=== PATIENT | female | born 1980 | race American Indian/Alaskan Native ===

== ENCOUNTER 2018-02-20 17:28 | Emergency (ER) | payer SELFPAY ==
[2018-02-20 20:15] VITALS: BP 133/87
--- NOTE | 2018-02-20 21:06 | Emergency Department Report ---
ED Female HPI - General Chief complaint: Urogenital-Female Stated complaint: YEAST INFECTION Time Seen by Provider: 02/20/18 21:05 Source: patient Mode of arrival: Ambulatory Limitations: No Limitations - History of Present Illness Initial comments: This is a 37-year-old female reports that she has a yeast infection vaginally after taken antibiotic. She says she is having white count P vaginal discharge with itching and she has had this in the past but the [id number] medication is not helping. She said they flew quant usually helps. Denies any vaginal bleeding. Denies any concern for STDs. Last menstrual period was 02/13. Denies any abdominal or back pain. Denies any vaginal pain. MD Complaint: vaginal discharge Onset/Timin -: week(s) Severity scale (0 -10): 0 Are you Now?: No Associated Symptoms: vaginal discharge. denies: vaginal bleeding, abdominal pain, nausea/vomiting, fever/chills, headaches, loss of appetite, dysuria, hematuria, rash, seizure, shortness of breath, syncope, weakness - Related Data Sexually active: No Previous Rx's Medication Instructions Recorded Last Taken Type Clotrimazole [Alevazol] 56.7 gm TP QHS 7 Days #1 oint...g. 02/20/18 Unknown Rx Fluconazole [Diflucan TAB] 200 mg PO QDAY 3 Days #3 tablet 02/20/18 Unknown Rx Allergies Allergy/AdvReac Type Severity Reaction Status Date / Time latex Allergy Rash Verified 02/20/18 20:16 ED Review of Systems ROS: Stated complaint: YEAST INFECTION Other details as noted in HPI Constitutional: denies: chills, fever ENT: denies: ear pain, throat pain, congestion Respiratory: denies: cough, shortness of breath, SOB with exertion, SOB at rest , stridor, wheezing Cardiovascular: denies: chest pain, palpitations Gastrointestinal: denies: abdominal pain, nausea, vomiting, diarrhea, constipation, hematemesis, melena, hematochezia Genitourinary: discharge. denies: urgency, dysuria, frequency, hematuria, abnormal menses Musculoskeletal: denies: back pain, joint swelling, arthralgia, myalgia Skin: denies: rash, lesions Neurological: denies: headache, weakness ED Past Medical Hx - Past Medical History Previous Medical History?: No - Surgical History Past Surgical History?: Yes Additional Surgical History: x 2 - Family History Family history: hypertension - Social History Smoking Status: Current Some Day Smoker Substance Use Type: Alcohol - Medications Home Medications: Home Medications Medication Instructions Recorded Confirmed Last Taken Type Clotrimazole [Alevazol] 56.7 gm TP QHS 7 Days #1 oint...g. 02/20/18 Unknown Rx Fluconazole [Diflucan TAB] 200 mg PO QDAY 3 Days #3 tablet 02/20/18 Unknown Rx ED Physical Exam - General Limitations: No Limitations General appearance: alert, in no apparent distress - Head Head exam: Present: atraumatic, normocephalic - ENT ENT exam: Present: normal exam, normal orophraynx, mucous membranes moist - Neck Neck exam: Present: normal inspection, full ROM. Absent: tenderness, lymphadenopathy - Respiratory Respiratory exam: Present: normal lung sounds bilaterally. Absent: respiratory distress, chest wall tenderness - Cardiovascular Cardiovascular Exam: Present: regular rate, normal rhythm, normal heart sounds. Absent: systolic murmur, diastolic murmur - GI/Abdominal GI/Abdominal exam: Present: soft, normal bowel sounds. Absent: distended, tenderness, guarding, rebound, rigid, organomegaly, mass - Extremities Exam Extremities exam: Present: normal inspection, full ROM, normal capillary refill , other (No cce. + 2 pulses in all extremities, no neurovascular compromise). Absent: tenderness, pedal edema, joint swelling - Neurological Exam Neurological exam: Present: alert, oriented X3, normal gait - Psychiatric Psychiatric exam: Present: normal affect, normal mood - Skin Skin exam: Present: warm, dry, intact, normal color. Absent: rash ED Course Vital Signs 02/20/18 20:09 Temperature 98 F Pulse Rate 66 Respiratory 16 Rate Blood Pressure 133/87 Blood Pressure 133/87 [Right] O2 Sat by Pulse 100 Oximetry - Reevaluation(s) Reevaluation #1: 02/20/18 22:00 Patient stable throughout ED stay. ED Medical Decision Making - Medical Decision Making 37-year-old female presents to emergency report that she has a yeast infection which she has had before and Diflucan on help. She says she has been using over -the-counter medication but it is not helping. She said she was on antibiotic and she developed this when she usually does. Patient has no other symptoms. Last menstrual period was 02/14/2018 and she is not having any urinary symptoms. Patient will be treated based on her reported symptoms. She has no concern for or for any other STD and said that she has had this in the past and knows exactly what she has. Vaginal discharge-treated for yeast infection. Patient given Diflucan on prescription and occur clotrimazole vaginal cream and to follow up with her primary care and she does not have a primary care follow-up at [facility]. Patient discharged home in stable condition. Vital signs are stable afebrile and discharged home with prescription for Diflucan on and Clotrimazole vaginal cream and she understands that she is to follow-up with primary care in 2-3 days. I also told her to take probiotics and his skin home. Critical care attestation.: If time is entered above; I have spent that time in minutes in the direct care of this critically ill patient, excluding procedure time. ED Disposition Clinical Impression: Vaginal yeast infection Disposition: DC-01 TO HOME OR SELFCARE Is pt being admited?: No Does the pt Need Aspirin: No Condition: Stable Instructions: Vaginitis (ED) Additional Instructions: Please use medication as prescribed Followup with your primary care doctor if he do not have a primary care doctor follow-up at [facility] in 2-3 days. Prescriptions: Clotrimazole [Alevazol] 56.7 gm TP QHS 7 Days #1 oint...g. Fluconazole [Diflucan TAB] 200 mg PO QDAY 3 Days #3 tablet Referrals: PRIMARY CARE, [Primary Care Provider] - 2-3 Days [facility] [Outside] - 2-3 Days Forms: Work/School Release Form(ED)
== END 2018-02-20 22:19 | disposition home or self-care (01) ==
LOC: ED 17:28
DX: B37.3 Candidiasis of vulva and vagina (principal); F17.200 Nicotine dependence, unspecified, uncomplicated; Z91.040 Latex allergy status
CPT/HCPCS: 99282

== ENCOUNTER 2018-02-28 16:10 | Emergency (ER) | payer SELFPAY ==
[2018-02-28 16:18] VITALS: BP 122/65
[2018-02-28 17:30] LABS: HCG Qualitative,Urine Negative (Negative)
[2018-02-28 17:34] LABS: Bilirubin,Urine NEG (Negative); Blood,Urine SM (Negative); Color,Urine Yellow (Yellow); Mucus,Urine 2+ /HPF; Urobilinogen,Urine < 2.0 mg/dL (<2.0)
[2018-02-28] MEDS ORDERED: ZITHROMAX PO ONE (19:52)
[2018-02-28] MEDS ORDERED: XYLOCAINE 1% MPF 5 mL INFILTRATI ONE (19:53)
[2018-02-28] MEDS ORDERED: ROCEPHIN IM ONE (19:53)
--- NOTE | 2018-02-28 20:00 | Emergency Department Report ---
ED Female HPI - General Chief complaint: Urogenital-Female Stated complaint: VAG DISCHARGE Time Seen by Provider: 02/28/18 18:20 Source: patient Mode of arrival: Ambulatory Limitations: No Limitations - History of Present Illness MD Complaint: vaginal discharge, possible STD -: week(s) (2-3. Initially thought she had a yeast infection and was seen about 1 week ago. She has completed the yeast regimen and reports continued and worsening symptoms. The discharge has progressed from a white to a yellow green dark thick nature) Severity: mild Quality: burning Improves with: none Worsens with: intercourse Are you Now?: No Associated Symptoms: vaginal discharge. denies: abdominal pain, nausea/vomiting , shortness of breath, syncope, weakness - Related Data Sexually active: Yes Previous Rx's Medication Instructions Recorded Last Taken Type Clotrimazole [Alevazol] 56.7 gm TP QHS 7 Days #1 oint...g. 02/20/18 Unknown Rx Fluconazole [Diflucan TAB] 200 mg PO QDAY 3 Days #3 tablet 02/20/18 Unknown Rx metroNIDAZOLE [Flagyl] 2,000 mg PO ONCE #4 tab 02/28/18 Unknown Rx Allergies Allergy/AdvReac Type Severity Reaction Status Date / Time latex Allergy Rash Verified 02/20/18 20:16 ED Review of Systems ROS: Stated complaint: VAG DISCHARGE Other details as noted in HPI Constitutional: denies: chills, fever Eyes: denies: eye pain, eye discharge, vision change ENT: denies: ear pain, throat pain Respiratory: denies: cough, shortness of breath, wheezing Cardiovascular: denies: chest pain, palpitations Endocrine: no symptoms reported Gastrointestinal: denies: abdominal pain, nausea, diarrhea Genitourinary: discharge. denies: urgency, dysuria, hematuria Musculoskeletal: denies: back pain, joint swelling, arthralgia Skin: denies: rash, lesions Neurological: denies: headache, weakness, paresthesias Psychiatric: denies: anxiety, depression Hematological/Lymphatic: denies: easy bleeding, easy bruising ED Past Medical Hx - Past Medical History Previous Medical History?: No - Surgical History Past Surgical History?: Yes Additional Surgical History: x 2 - Social History Smoking Status: Current Every Day Smoker Substance Use Type: Alcohol - Medications Home Medications: Home Medications Medication Instructions Recorded Confirmed Last Taken Type Clotrimazole [Alevazol] 56.7 gm TP QHS 7 Days #1 oint...g. 02/20/18 Unknown Rx Fluconazole [Diflucan TAB] 200 mg PO QDAY 3 Days #3 tablet 02/20/18 Unknown Rx metroNIDAZOLE [Flagyl] 2,000 mg PO ONCE #4 tab 02/28/18 Unknown Rx ED Physical Exam - General Limitations: No Limitations General appearance: alert, in no apparent distress - Head Head exam: Present: atraumatic, normocephalic - Eye Eye exam: Present: normal appearance Pupils: Present: normal accommodation - ENT ENT exam: Present: normal exam, mucous membranes moist - Neck Neck exam: Present: normal inspection - Respiratory Respiratory exam: Present: normal lung sounds bilaterally. Absent: respiratory distress - Cardiovascular Cardiovascular Exam: Present: regular rate, normal rhythm. Absent: systolic murmur, diastolic murmur, rubs, gallop - GI/Abdominal GI/Abdominal exam: Present: soft, normal bowel sounds. Absent: distended, tenderness, guarding - External exam: Present: normal external exam Speculum exam: Present: vaginal discharge (thick yellow and green), cervical discharge Bi-manual exam: Present: normal bi-manual exam. Absent: cervical motion tendernes - Extremities Exam Extremities exam: Present: normal inspection - Back Exam Back exam: Present: normal inspection - Neurological Exam Neurological exam: Present: alert, oriented X3 - Psychiatric Psychiatric exam: Present: normal affect, normal mood - Skin Skin exam: Present: warm, dry, intact, normal color. Absent: rash ED Course Vital Signs 02/28/18 16:16 Temperature 98.8 F Pulse Rate 76 Respiratory 18 Rate Blood Pressure 122/65 O2 Sat by Pulse 100 Oximetry Critical care attestation.: If time is entered above; I have spent that time in minutes in the direct care of this critically ill patient, excluding procedure time. ED Disposition Clinical Impression: Vaginal discharge, Possible exposure to STD Disposition: DC-01 TO HOME OR SELFCARE Is pt being admited?: No Does the pt Need Aspirin: No Condition: Stable Instructions: Sexually Transmitted Diseases (ED), Chlamydia Infection (ED), Safe Sex (ED) Prescriptions: metroNIDAZOLE [Flagyl] 2,000 mg PO ONCE #4 tab Referrals: PRIMARY CARE,MD [Primary Care Provider] - 3-5 Days Print Language: KENYAN
== END 2018-02-28 20:32 | disposition home or self-care (01) ==
LOC: ED 16:10
DX: N89.8 Other specified noninflammatory disorders of vagina (principal); F17.200 Nicotine dependence, unspecified, uncomplicated; Z91.040 Latex allergy status
CPT/HCPCS: 81001; 81025; 87210; 87591; 96372; 99284; J0696; 87116

== ENCOUNTER 2018-06-20 14:56 | Outpatient (CLI) | payer OTHER ==
--- NOTE | 2018-06-20 15:55 | Mammography Report ---
BILATERAL DIGITAL SCREENING MAMMOGRAM WITH CAD:06/20/18 00:00:00 CLINICAL: Baseline screening. FINDINGS: The breasts are heterogeneously dense, which may obscure small masses.No mass, architectural distortion or suspicious calcifications. IMPRESSION: No mammographic evidence of malignancy. BI-RADS CATEGORY: 1 -- Negative RECOMMENDATION: Routine mammographic screening based on ACS guidelines. ACR BI-RADS MAMMOGRAPHIC CODES: 0 = Needs additional imaging evaluation; 1 = Negative; 2 = Benign; 3 = Probably benign; 4 = Suspicious; 5 = Malignant; 6 = Known biopsy-proven malignancy COMMENT: 1. Dense breast tissue, i.e., adenosis, fibrocystic changes, etc., may obscure an underlying neoplasm. 2. Approximately 10% of cancers are not detected with mammography. 3. A negative mammography report should not delay biopsy if a clinically suspicious mass is present.
== END 2018-06-20 14:57 | disposition home or self-care (01) ==
LOC: MAMMO 14:56
PROVIDERS: ATTEND Nurse Practitioner Family
DX: Z12.31 Encounter for screening mammogram for malignant neoplasm of breast (principal)
CPT/HCPCS: 77067

== ENCOUNTER 2019-08-08 18:05 | Emergency (ER) | payer OTHER ==
[2019-08-08 19:13] VITALS: BP 140/82
== END 2019-08-08 21:42 | disposition left against medical advice (07) ==
LOC: ED 18:05
DX: M54.2 Cervicalgia (principal); Z53.21 Procedure and treatment not carried out due to patient leaving prior to being seen by health care provider

== ENCOUNTER 2022-01-28 14:28 | Outpatient (CLI) | payer OTHER ==
--- NOTE | 2022-02-28 12:37 | Mammography Report ---
BILATERAL DIGITAL DIAGNOSTIC MAMMOGRAM CONVENTIONAL, 02/14/2022 BILATERAL LIMITED BREAST ULTRASOUND CLINICAL INFORMATION / INDICATION: Patient presents for evaluation of an area of focal pain in both breasts. N64.4 MASTODYNIA TECHNIQUE: Digital bilateral mammographic imaging was performed. Limited ultrasound was performed. COMPARISON: Prior mammogram 06/20/2018 FINDINGS: Breast Density: The breasts are heterogeneously dense, which may obscure small masses. MAMMOGRAPHIC FINDINGS: No dominant mass, suspicious calcifications, or architectural distortion in either breast. There has been no significant change compared with the prior examination. There is no mammographic abnormality to account for bilateral breast pain, therefore targeted bilateral breast ultrasound was performed for further evaluation. ULTRASOUND FINDINGS: Targeted ultrasound evaluation was performed of the area of interest. Right breast: Targeted ultrasound of the area of focal pain in the right breast reveals several benign simple and clustered cysts, including a 9 mm cyst in the 12:00 position located 5 cm from nipple, and a 1.4 cm cluster of cysts in the 11:00 position located 9 cm from the nipple. No suspicious solid lesion identified. Left breast: Targeted ultrasound of the area of focal pain in the left breast reveals several benign simple and clustered cysts, including a 1.1 cm cyst in the 1:00 position located 4 cm from nipple, an 8 mm cluster of cysts in the 12:00 position located 4 cm from nipple, and a 1.2 cm cyst in the 2:00 position located 6 cm from the nipple. No suspicious solid lesion identified. IMPRESSION: 1. There is benign fibrocystic change seen in both breasts. No suspicious mammographic or sonographic abnormality identified. Follow up recommendation: Routine yearly screening mammogram. BI-RADS Category 2: BENIGN. A "normal" or negative report should not discourage follow up or biopsy of a clinically significant finding. A written summary of these findings will be mailed to the patient. The patient will be entered into a mammography reporting system which will generate a reminder letter for the patient's next appointment at the appropriate interval. According to the [employer], yearly mammograms are recommended starting at age 40 and continuing as long as a woman is in good health. Breast MRI is recommended for women with an approximately 20-25% or greater lifetime risk of breast cancer, including women with a strong family history of breast or ovarian cancer and women who have been treated for Hodgkin's disease. Signer Name: Chiquita Ramos MD Signed: 02/14/2022 11:11 AM Workstation Name: [email or web address] RECOMMENDATION^1YR (D) BIRADS^2 MTDD
== END 2022-01-28 14:29 | disposition home or self-care (01) ==
LOC: MAMMO 14:28
PROVIDERS: ATTEND Family Medicine
DX: N60.02 Solitary cyst of left breast (principal); N60.01 Solitary cyst of right breast; N64.4 Mastodynia
CPT/HCPCS: 77066

== ENCOUNTER 2022-02-14 10:23 | Outpatient (CLI) | payer OTHER ==
--- NOTE | 2022-02-14 12:16 | Ultrasound Report ---
BILATERAL DIGITAL DIAGNOSTIC MAMMOGRAM CONVENTIONAL, 02/14/2022 BILATERAL LIMITED BREAST ULTRASOUND CLINICAL INFORMATION / INDICATION: Patient presents for evaluation of an area of focal pain in both b reasts. N64.4 MASTODYNIA TECHNIQUE: Digital bilateral mammographic imaging was performed. Limited ultrasound was performed. COMPARISON: Prior mammogram 06/20/2018 FINDINGS: Breast Density: The breasts are heterogeneously dense, which may obscure small masses. MAMMOGRAPHIC FINDINGS: No dominant mass, suspicious calcifications, or architectural distortion in ei ther breast. There has been no significant change compared with the prior examination. There is no ma mmographic abnormality to account for bilateral breast pain, therefore targeted bilateral breast ultr asound was performed for further evaluation. ULTRASOUND FINDINGS: Targeted ultrasound evaluation was performed of the area of interest. Right breast: Targeted ultrasound of the area of focal pain in the right breast reveals several benig n simple and clustered cysts, including a 9 mm cyst in the 12:00 position located 5 cm from nipple, a nd a 1.4 cm cluster of cysts in the 11:00 position located 9 cm from the nipple. No suspicious solid lesion identified. Left breast: Targeted ultrasound of the area of focal pain in the left breast reveals several benign simple and clustered cysts, including a 1.1 cm cyst in the 1:00 position located 4 cm from nipple, an 8 mm cluster of cysts in the 12:00 position located 4 cm from nipple, and a 1.2 cm cyst in the 2:00 position located 6 cm from the nipple. No suspicious solid lesion identified. IMPRESSION: 1. There is benign fibrocystic change seen in both breasts. No suspicious mammographic or sonographic abnormality identified. Follow up recommendation: Routine yearly screening mammogram. BI-RADS Category 2: BENIGN. A "normal" or negative report should not discourage follow up or biopsy of a clinically significant f inding. A written summary of these findings will be mailed to the patient. The patient will be entered into a mammography reporting system which will generate a reminder letter for the patient's next appointmen t at the appropriate interval. According to the [employer], yearly mammograms are recommended starting at age 40 and continuing as long as a woman is in good health. Breast MRI is recommended for women with an [place] roximately 20-25% or greater lifetime risk of breast cancer, including women with a strong family his tory of breast or ovarian cancer and women who have been treated for Hodgkin's disease. Signer Name: Chiquita Ramos MD Signed: 02/14/2022 12:11 PM Workstation Name: [id number]
== END 2022-02-14 10:24 | disposition home or self-care (01) ==
LOC: US 10:23
PROVIDERS: ATTEND Family Medicine
DX: N60.02 Solitary cyst of left breast (principal); N60.01 Solitary cyst of right breast